=== PATIENT | male | born 1935 | race Caucasian/White ===

== ENCOUNTER 2016-07-24 06:20 | Day surgery (SDC) | payer OTHER ==
[2016-07-21 10:52] VITALS: BMI 27.4
[2016-07-24] MEDS ORDERED: PROPOFOL 20 ML ONE (07:35)
[2016-07-24] MEDS ORDERED: LIDOCAINE HCL/PF 2% SDV 5ML VIAL ONE (07:37)
[2016-07-24] MEDS ORDERED: ONDANSETRON 4 MG/2 ML VIAL ONE (07:39)
[2016-07-24] MEDS ORDERED: DEXAMETHASONE SOD PHOSPHATE 4 MG/1 ML VIAL ONE (07:39)
[2016-07-24] MEDS ORDERED: MIDAZOLAM HCL 2 MG/2 ML SINGLE DOSE VIAL ONE (07:52)
[2016-07-24] MEDS ORDERED: ceFAZolin SODIUM 1 GM VIAL ONE (08:05)
[2016-07-24] MEDS ORDERED: ESMOLOL HCL 10 ML ONE (08:24)
[2016-07-24] MEDS ORDERED: BUPIVACAINE HCL/PF 0.25% (2.5MG/ML) 10 ML VIAL IJ ONE ×2 (08:26)
[2016-07-24] MEDS ORDERED: ONDANSETRON 4 MG/2 ML VIAL IVPUSH PRN (08:55)
[2016-07-24] MEDS ORDERED: LACTATED RINGERS SOLUTION 1,000 ML IV SCH (09:00)
[2016-07-24] MEDS ORDERED: oxyCODONE HCL 5 MG TABLET PO PRN (09:16)
[2016-07-24 09:26] VITALS: TEMP 97.5
[2016-07-24 10:50] VITALS: BP 150/88; PULSE 80
--- NOTE | 2016-07-25 08:56 | OP ---
DATE OF OPERATION: 07/24/2016 done at [facility] SURGEON: Pipo Huber MD ASSISSTANT: ANN Camp PREOPERATIVE DIAGNOSIS: Right elbow olecranon bursitis/chronic. POSTOPERATIVE DIAGNOSIS: Right elbow olecranon bursitis/chronic. PROCEDURE: Excision of elbow olecranon bursa going down to bone. FINDINGS: Thickened, scarred-in olecranon bursa with scar tissue down to the olecranon bone. DESCRIPTION OF PROCEDURE: Informed consent was obtained. The patient was taken to the operating room where the right upper extremity was prepped and draped in a sterile fashion. Tourniquet was placed on the upper arm and inflated to 250 mmHg. The arm was placed across the chest in a supine position. Incision was made on the area of the mass, and the olecranon bursa was taken along its borders and taken down to the olecranon where it was removed in one piece. Small remnants remain, and these were removed, as well. Bovie cautery was used to create scarring along the olecranon portion. Careful attention was made to avoid damage to the neurovascular bundles. Wound was irrigated with irrigation. A portion of the was removed, which was extended due to the mass. The lowest subcutaneous layer was secured to the periosteum of the bone. The subcuticular layer was then closed, and the skin was closed with 3-0 nylon in a single interrupted suture. Sterile dressing was placed. The patient transferred to the recovery room without complication. PIPO HUBER M.D. [id number]
--- NOTE | 2016-07-28 13:18 | PATH ---
Surgical Pathology Report Patient Name: DORA JOHNSON [facility]. Rec. #: [id number] /Age/Gender: 1935 (Age: 80) / M Account: [id number] Location: [facility] Taken: 07/24/2016 Received: 07/24/2016 Reported: 07/28/2016 Physicians: Omar Jones M.D. Specimen(s) Received OLECRANON BURSA RIGHT ELBOW Clinical History Right olecranon bursitis Final Diagnosis SOFT TISSUE, RIGHT ELBOW, EXCISION: FIBROTIC SYNOVIUM CONSISTENT WITH BURSA, WITH ASSOCIATED HEMORRHAGE AND FIBRINOID NECROSIS. Electronically Signed Romero Monahan M.D. Gross Description Received in formalin, labeled "olecranon bursa right elbow," is a 4.4 x 3.5 x 1.8 cm aguilar, fibrous saclike structure with focal hemorrhage. Log Preparer sections are submitted in 2 cassettes. /07/27/2016 saudi07/27/2016
== END 2016-07-24 10:50 | disposition home or self-care (01) ==
LOC: FASU 06:20
PROVIDERS: ATTEND Orthopaedic Surgery
PROC: 0MB30ZZ Excision of Right Elbow Bursa and Ligament, Open Approach (ICD-10-PCS; principal; 2016-07-24 08:17)
DX: M70.20 Olecranon bursitis, unspecified elbow (principal)
CPT/HCPCS: 87070; 87075; 87205; 88304-TC; 94760

== ENCOUNTER 2022-06-11 23:45 | Inpatient (IN) | payer OTHER ==
[2022-06-12 00:08] VITALS: BMI 27.8
[2022-06-12] MEDS ORDERED: SODIUM CHLORIDE 0.9% 500 ML INFUS.BAG IV ONE ×2 (00:51→02:57)
[2022-06-12 01:13] LABS: BASO % 0.1 % (0-2.0); HEMATOCRIT 29.9 % (35.4-49); HEMOGLOBIN 9.1 GM/dL (11.7-16.9); LYMPH % 6.6 % (8-40); MCH 25.1 pg (25.7-33.7); MCHC 30.3 g/dl (32.0-35.9); MEAN CELL VOLUME 82.7 fl (80-96); MEAN PLT VOLUME 8.6 fl (7.5-11.1); MONO % 8.3 % (3.8-10.2); PLATELET COUNT 367 10^3/uL (134-434); RBC 3.62 M/mm3 (4.00-5.60); RDW 14.3 % (11.9-15.9); WHITE BLOOD COUNT 17.7 K/mm3 (4.0-10.0)
[2022-06-12 01:30] LABS: INR 1.22 (0.83-1.09); PROTHROMBIN TIME (PATIENT) 14.1 SEC (9.7-13.0)
[2022-06-12 01:32] LABS: ACTIVATED PTT 22.8 SECONDS (25.2-36.5)
[2022-06-12 01:35] LABS: ALBUMIN 2.9 g/dl (3.4-5.0); BLOOD UREA NITROGEN 41.4 mg/dL (7-18)
[2022-06-12 01:37] LABS: CREATININE 1.4 mg/dL (0.55-1.3)
[2022-06-12 01:38] LABS: TOT PROT 6.6 g/dl (6.4-8.2)
[2022-06-12 01:39] LABS: BILIRUBIN,TOTAL 0.3 mg/dL (0.2-1)
[2022-06-12 01:42] LABS: N-TERMINAL BNP 889.8 pg/ml (5-450)
[2022-06-12 01:46] LABS: LACTIC ACID 2.4 mmol/L (0.4-2.0)
[2022-06-12 02:09] LABS: VENOUS BASE EXCESS 7.4 mmol/L (-2-2); VENOUS O2 SATURATION 30.7 % (70-80); VENOUS PCO2 48.5 mmHg (38-52); VENOUS PH 7.442 (7.310-7.410)
[2022-06-12] MEDS ORDERED: PANTOPRAZOLE SODIUM 40 MG VIAL IVPUSH ONE (02:48)
[2022-06-12] MEDS ORDERED: PANTOPRAZOLE SODIUM 160 MG in SODIUM CHLORIDE 290 ML IVPB SCH ×2 (03:00→08:32)
[2022-06-12] MEDS ORDERED: PANTOPRAZOLE SODIUM 40 MG VIAL ONE (03:01)
[2022-06-12 04:11] LABS: EPI CELLS 6 /uL (0-25.1); HYALINE CASTS 2 /uL (0-3.1); PH,URINE 5.5 (5.0-8.0); URINE APPEARANCE CLEAR; URINE BACTERIA 4 /uL (0-1359); URINE BILIRUBIN NEGATIVE (NEGATIVE); URINE COLOR YELLOW; URINE GLUCOSE (UA) NEGATIVE (NEGATIVE); URINE KETONE NEGATIVE (NEGATIVE); URINE LEUK ESTERASE TRACE (NEGATIVE); URINE NITRITE NEGATIVE (NEGATIVE); URINE PROTEIN NEGATIVE (NEGATIVE); URINE RBC 26 /uL (0-23.9); URINE UROBILINOGEN 0.2 mg/dL (0.2-1.0); URINE WBC 34 /uL (0-25.8)
[2022-06-12] MEDS ORDERED: VANCOMYCIN/WATER 1,250 MG/250 ML BAG (RESTRICTED TO ID ONLY) IVPB SCH ×2 (05:45)
[2022-06-12] MEDS ORDERED: PIPERACILLIN/TAZOB 3.375 GM 3.375 GM in DEXTROSE 5%-WATER - 50 ML IVPB SCH ×2 (05:45→20:00)
[2022-06-12] MEDS ORDERED: PIPERACILLIN/TAZOB 3.375 GM 3.375 GM/50 ML BAG IVPB ONE ×2 (05:57→12:03)
[2022-06-12] MEDS: PIPERACILLIN/TAZOB 3.375 GM 3.375 GM in DEXTROSE 5%-WATER - 50 ML IVPB SCH ×3 (06:27→23:23)
[2022-06-12 06:33] LABS: BASO % 0.5 % (0-2.0); HEMATOCRIT 26.5 % (35.4-49); HEMOGLOBIN 8.1 GM/dL (11.7-16.9); MCH 24.9 pg (25.7-33.7); MCHC 30.7 g/dl (32.0-35.9); MEAN CELL VOLUME 81.2 fl (80-96); MEAN PLT VOLUME 8.6 fl (7.5-11.1); MONO % 9.1 % (3.8-10.2); NEUT % 79.4 % (42.8-82.8); PLATELET COUNT 355 10^3/uL (134-434); RBC 3.27 M/mm3 (4.00-5.60); WHITE BLOOD COUNT 16.3 K/mm3 (4.0-10.0)
[2022-06-12 06:50] LABS: CALCIUM 8.6 mg/dL (8.5-10.1)
[2022-06-12 06:51] LABS: ALBUMIN 2.7 g/dl (3.4-5.0); BLOOD UREA NITROGEN 39.5 mg/dL (7-18); MAGNESIUM 1.9 mg/dL (1.8-2.4)
[2022-06-12 06:54] LABS: PHOSPHOROUS 2.6 mg/dL (2.5-4.9)
[2022-06-12 06:55] LABS: BILIRUBIN,TOTAL 0.3 mg/dL (0.2-1)
[2022-06-12] MEDS ORDERED: NAPH,MB-DB/K PH,MBDB POWDER PACKET PO ONE (07:00)
[2022-06-12 07:02] LABS: CREATININE 1.2 mg/dL (0.55-1.3)
[2022-06-12] MEDS ORDERED: VANCOMYCIN/WATER FOR INJ (PEG) 1,000 MG/200 ML BAG IVPB ONE ×2 (08:00→08:46)
[2022-06-12] MEDS: INSULIN SLIDING SCALE (NOVOLOG) 1 VIAL SQ SCH ×4 (08:30→23:28)
[2022-06-12] MEDS ORDERED: TAMSULOSIN HCL 0.4 MG CAP PO SCH (08:30)
[2022-06-12] MEDS ORDERED: FINASTERIDE 5 MG TABLET (FP) PO SCH (10:00)
[2022-06-12] MEDS ORDERED: TAMSULOSIN HCL 0.4 MG CAP ONE (10:13)
[2022-06-12] MEDS ORDERED: ATORVASTATIN CA 10 MG TABLET (FP) PO SCH (22:00)
[2022-06-12] MEDS ORDERED: MELATONIN 5 MG TABLETS PO ONE (22:50)
[2022-06-12] MEDS: PANTOPRAZOLE 40 MG TABLET PO SCH (23:24)
[2022-06-12] MEDS: ATORVASTATIN CA 10 MG TABLET (FP) PO SCH (23:24)
[2022-06-13] MEDS: PIPERACILLIN/TAZOB 3.375 GM 3.375 GM in DEXTROSE 5%-WATER - 50 ML IVPB SCH ×3 (05:15→20:15)
[2022-06-13] MEDS: INSULIN SLIDING SCALE (NOVOLOG) 1 VIAL SQ SCH ×4 (06:21→21:33)
[2022-06-13] MEDS ORDERED: VANCOMYCIN/WATER FOR INJ (PEG) 750 MG/150 ML BAG IVPB SCH ×2 (08:00)
[2022-06-13 08:31] LABS: BASO % 0.4 % (0-2.0); EOS % 1.4 % (0-4.5); HEMATOCRIT 24.4 % (35.4-49); HEMOGLOBIN 7.7 GM/dL (11.7-16.9); LYMPH % 13.4 % (8-40); MCH 26.3 pg (25.7-33.7); MCHC 31.4 g/dl (32.0-35.9); MEAN CELL VOLUME 83.5 fl (80-96); MEAN PLT VOLUME 8.3 fl (7.5-11.1); MONO % 9.4 % (3.8-10.2); NEUT % 75.4 % (42.8-82.8); PLATELET COUNT 284 10^3/uL (134-434); RBC 2.92 M/mm3 (4.00-5.60); RDW 14.9 % (11.9-15.9); RETICULOCYTES 3.66 % (0.5-1.5)
[2022-06-13 09:03] LABS: ALBUMIN 2.6 g/dl (3.4-5.0); BLOOD UREA NITROGEN 31.3 mg/dL (7-18); CALCIUM 8.6 mg/dL (8.5-10.1)
[2022-06-13 09:08] LABS: BILIRUBIN,TOTAL 0.7 mg/dL (0.2-1); CREATININE 1.4 mg/dL (0.55-1.3); TOT PROT 5.6 g/dl (6.4-8.2)
[2022-06-13] MEDS: FINASTERIDE 5 MG TABLET (FP) PO SCH (09:54)
[2022-06-13] MEDS: PANTOPRAZOLE 40 MG TABLET PO SCH ×2 (09:54→21:27)
[2022-06-13] MEDS: DONEPEZIL HCL 10 MG TABLET (FP) PO SCH (09:54)
[2022-06-13] MEDS: TAMSULOSIN HCL 0.4 MG CAP PO SCH (09:54)
[2022-06-13] MEDS ORDERED: ATORVASTATIN CA 40 MG TABLET (FP) PO ONE (14:26)
[2022-06-13] MEDS: MELATONIN 5 MG TABLETS PO PRN (21:27)
[2022-06-13] MEDS: ATORVASTATIN CA 10 MG TABLET (FP) PO SCH (21:27)
[2022-06-14] MEDS: PIPERACILLIN/TAZOB 3.375 GM 3.375 GM in DEXTROSE 5%-WATER - 50 ML IVPB SCH ×3 (04:51→21:22)
[2022-06-14] MEDS: INSULIN SLIDING SCALE (NOVOLOG) 1 VIAL SQ SCH ×4 (06:34→22:00)
[2022-06-14 08:13] LABS: HEMOGLOBIN 8.1 GM/dL (11.7-16.9); MCH 26.6 pg (25.7-33.7); MCHC 31.3 g/dl (32.0-35.9); MEAN CELL VOLUME 84.9 fl (80-96); MEAN PLT VOLUME 8.2 fl (7.5-11.1); PLATELET COUNT 285 10^3/uL (134-434); RBC 3.06 M/mm3 (4.00-5.60); RDW 14.8 % (11.9-15.9); WHITE BLOOD COUNT 10.9 K/mm3 (4.0-10.0)
[2022-06-14 08:45] LABS: BLOOD UREA NITROGEN 21.6 mg/dL (7-18); MAGNESIUM 2.1 mg/dL (1.8-2.4)
[2022-06-14 08:48] LABS: CREATININE 1.2 mg/dL (0.55-1.3); PHOSPHOROUS 3.4 mg/dL (2.5-4.9)
[2022-06-14] MEDS: MEMANTINE HCL 10 MG TABLET (FP) PO SCH ×2 (09:48→21:23)
[2022-06-14] MEDS: TAMSULOSIN HCL 0.4 MG CAP PO SCH (09:48)
[2022-06-14] MEDS: FINASTERIDE 5 MG TABLET (FP) PO SCH (09:48)
[2022-06-14] MEDS: DONEPEZIL HCL 10 MG TABLET (FP) PO SCH (09:48)
[2022-06-14] MEDS: PANTOPRAZOLE 40 MG TABLET PO SCH ×2 (09:48→21:24)
[2022-06-14] MEDS ORDERED: MEMANTINE HCL 28 MG PO SCH (10:00)
[2022-06-14] MEDS: ATORVASTATIN CA 40 MG TABLET (FP) PO SCH (21:23)
[2022-06-14] MEDS: MELATONIN 5 MG TABLETS PO PRN (21:31)
[2022-06-15] MEDS: PIPERACILLIN/TAZOB 3.375 GM 3.375 GM in DEXTROSE 5%-WATER - 50 ML IVPB SCH ×3 (04:24→20:11)
[2022-06-15] MEDS: INSULIN SLIDING SCALE (NOVOLOG) 1 VIAL SQ SCH ×4 (06:12→21:27)
[2022-06-15 08:46] LABS: HEMATOCRIT 25.8 % (35.4-49); HEMOGLOBIN 8.2 GM/dL (11.7-16.9); MCH 27.1 pg (25.7-33.7); MCHC 31.9 g/dl (32.0-35.9); MEAN PLT VOLUME 8.5 fl (7.5-11.1); PLATELET COUNT 312 10^3/uL (134-434); RBC 3.04 M/mm3 (4.00-5.60); WHITE BLOOD COUNT 10.1 K/mm3 (4.0-10.0)
[2022-06-15 08:51] LABS: BLOOD UREA NITROGEN 18.4 mg/dL (7-18)
[2022-06-15 08:52] LABS: MAGNESIUM 2.1 mg/dL (1.8-2.4)
[2022-06-15 08:54] LABS: PHOSPHOROUS 3.8 mg/dL (2.5-4.9)
[2022-06-15 08:55] LABS: CALCIUM 8.9 mg/dL (8.5-10.1); CREATININE 1.3 mg/dL (0.55-1.3)
[2022-06-15] MEDS: TAMSULOSIN HCL 0.4 MG CAP PO SCH (09:30)
[2022-06-15] MEDS: DONEPEZIL HCL 10 MG TABLET (FP) PO SCH (09:59)
[2022-06-15] MEDS: PANTOPRAZOLE 40 MG TABLET PO SCH ×2 (09:59→21:13)
[2022-06-15] MEDS: FINASTERIDE 5 MG TABLET (FP) PO SCH (09:59)
[2022-06-15] MEDS: MEMANTINE HCL 10 MG TABLET (FP) PO SCH ×2 (10:01→21:13)
[2022-06-15] MEDS: ATORVASTATIN CA 40 MG TABLET (FP) PO SCH (21:12)
[2022-06-15] MEDS: MELATONIN 5 MG TABLETS PO PRN (21:13)
[2022-06-16] MEDS: PIPERACILLIN/TAZOB 3.375 GM 3.375 GM in DEXTROSE 5%-WATER - 50 ML IVPB SCH ×3 (05:10→21:28)
[2022-06-16] MEDS: INSULIN SLIDING SCALE (NOVOLOG) 1 VIAL SQ SCH ×4 (06:18→21:43)
[2022-06-16 07:45] LABS: HEMATOCRIT 25.8 % (35.4-49); HEMOGLOBIN 8.3 GM/dL (11.7-16.9); MCH 27.2 pg (25.7-33.7); MEAN CELL VOLUME 84.9 fl (80-96); MEAN PLT VOLUME 8.1 fl (7.5-11.1); PLATELET COUNT 311 10^3/uL (134-434); RBC 3.04 M/mm3 (4.00-5.60); RDW 15.1 % (11.9-15.9); WHITE BLOOD COUNT 10.2 K/mm3 (4.0-10.0)
[2022-06-16 08:04] LABS: CALCIUM 8.5 mg/dL (8.5-10.1)
[2022-06-16 08:05] LABS: ALBUMIN 2.7 g/dl (3.4-5.0); BLOOD UREA NITROGEN 16.4 mg/dL (7-18)
[2022-06-16 08:08] LABS: CREATININE 1.1 mg/dL (0.55-1.3); PHOSPHOROUS 2.9 mg/dL (2.5-4.9)
[2022-06-16 08:09] LABS: BILIRUBIN,TOTAL 0.7 mg/dL (0.2-1)
[2022-06-16 08:55] LABS: ANISOCYTOSIS 1+; MACROCYTOSIS 0
[2022-06-16] MEDS: MEMANTINE HCL 10 MG TABLET (FP) PO SCH ×2 (09:40→21:28)
[2022-06-16] MEDS: PANTOPRAZOLE 40 MG TABLET PO SCH ×2 (09:40→21:29)
[2022-06-16] MEDS: DONEPEZIL HCL 10 MG TABLET (FP) PO SCH (09:40)
[2022-06-16] MEDS: TAMSULOSIN HCL 0.4 MG CAP PO SCH (09:40)
[2022-06-16] MEDS: FINASTERIDE 5 MG TABLET (FP) PO SCH (09:40)
[2022-06-16] MEDS: ASPIRIN COATED 81 MG TABLET.EC PO SCH (17:11)
[2022-06-16] MEDS: ATORVASTATIN CA 40 MG TABLET (FP) PO SCH (21:28)
[2022-06-16] MEDS: MELATONIN 5 MG TABLETS PO PRN (21:28)
[2022-06-17] MEDS: PIPERACILLIN/TAZOB 3.375 GM 3.375 GM in DEXTROSE 5%-WATER - 50 ML IVPB SCH (05:14)
[2022-06-17] MEDS: INSULIN SLIDING SCALE (NOVOLOG) 1 VIAL SQ SCH ×4 (06:35→21:56)
[2022-06-17 08:14] LABS: HEMATOCRIT 25.1 % (35.4-49); HEMOGLOBIN 7.9 GM/dL (11.7-16.9); MCH 26.7 pg (25.7-33.7); MCHC 31.4 g/dl (32.0-35.9); MEAN PLT VOLUME 7.7 fl (7.5-11.1); PLATELET COUNT 303 10^3/uL (134-434); RBC 2.96 M/mm3 (4.00-5.60); RDW 15.8 % (11.9-15.9); WHITE BLOOD COUNT 8.7 K/mm3 (4.0-10.0)
[2022-06-17 08:46] LABS: ALBUMIN 2.5 g/dl (3.4-5.0); BLOOD UREA NITROGEN 16.4 mg/dL (7-18); MAGNESIUM 2.1 mg/dL (1.8-2.4)
[2022-06-17 08:48] LABS: CALCIUM 8.7 mg/dL (8.5-10.1)
[2022-06-17 08:49] LABS: CREATININE 1.1 mg/dL (0.55-1.3); PHOSPHOROUS 3.4 mg/dL (2.5-4.9)
[2022-06-17 08:50] LABS: BILIRUBIN,TOTAL 0.6 mg/dL (0.2-1); TOT PROT 5.7 g/dl (6.4-8.2)
[2022-06-17 09:15] LABS: ANISOCYTOSIS 0; MACROCYTOSIS 0
[2022-06-17] MEDS: amLODIPine BESYLATE 5 MG TABLET (FP) PO SCH (10:00)
[2022-06-17] MEDS: DONEPEZIL HCL 10 MG TABLET (FP) PO SCH (10:00)
[2022-06-17] MEDS: ASPIRIN COATED 81 MG TABLET.EC PO SCH (10:00)
[2022-06-17] MEDS: MEMANTINE HCL 10 MG TABLET (FP) PO SCH ×2 (10:00→21:48)
[2022-06-17] MEDS: FINASTERIDE 5 MG TABLET (FP) PO SCH (10:00)
[2022-06-17] MEDS: TAMSULOSIN HCL 0.4 MG CAP PO SCH (10:00)
[2022-06-17] MEDS: PANTOPRAZOLE 40 MG TABLET PO SCH ×2 (10:00→21:49)
[2022-06-17] MEDS: ATORVASTATIN CA 40 MG TABLET (FP) PO SCH (21:49)
[2022-06-17] MEDS: MELATONIN 5 MG TABLETS PO PRN (21:49)
[2022-06-18] MEDS: INSULIN SLIDING SCALE (NOVOLOG) 1 VIAL SQ SCH ×2 (06:24→11:14)
[2022-06-18] MEDS: TAMSULOSIN HCL 0.4 MG CAP PO SCH (08:38)
[2022-06-18 10:58] VITALS: BP 136/81; PULSE 82; RESP 18; TEMP 98.4
[2022-06-18] MEDS: DONEPEZIL HCL 10 MG TABLET (FP) PO SCH (10:59)
[2022-06-18] MEDS: MEMANTINE HCL 10 MG TABLET (FP) PO SCH (10:59)
[2022-06-18] MEDS: ASPIRIN COATED 81 MG TABLET.EC PO SCH (10:59)
[2022-06-18] MEDS: amLODIPine BESYLATE 5 MG TABLET (FP) PO SCH (10:59)
[2022-06-18] MEDS: FINASTERIDE 5 MG TABLET (FP) PO SCH (10:59)
[2022-06-18] MEDS: PANTOPRAZOLE 40 MG TABLET PO SCH (11:00)
== END 2022-06-18 14:00 | DRG 377 ==
LOC: JER 23:45 → JERBED 06-12 02:57 → J4W 06-12 18:06
PROVIDERS: ADMIT Internal Medicine; ATTEND Internal Medicine
PROC: 30233N1 Transfusion of Nonautologous Red Blood Cells into Peripheral Vein, Percutaneous Approach (ICD-10-PCS; 2022-06-12)
PROC: 0DJ08ZZ Inspection of Upper Intestinal Tract, Via Natural or Artificial Opening Endoscopic (ICD-10-PCS; principal; 2022-06-12 14:15)
DX: K29.41 Chronic atrophic gastritis with bleeding (principal); I61.9 Nontraumatic intracerebral hemorrhage, unspecified; G81.91 Hemiplegia, unspecified affecting right dominant side; N39.0 Urinary tract infection, site not specified; N17.9 Acute kidney failure, unspecified; D62 Acute posthemorrhagic anemia; K25.4 Chronic or unspecified gastric ulcer with hemorrhage; K29.71 Gastritis, unspecified, with bleeding; K21.9 Gastro-esophageal reflux disease without esophagitis; F03.90 Unspecified dementia, unspecified severity, without behavioral disturbance, psychotic disturbance, mood disturbance, and anxiety; D64.9 Anemia, unspecified; N40.0 Benign prostatic hyperplasia without lower urinary tract symptoms; E83.39 Other disorders of phosphorus metabolism; E11.9 Type 2 diabetes mellitus without complications; D50.9 Iron deficiency anemia, unspecified; B96.20 Unspecified Escherichia coli [E. coli] as the cause of diseases classified elsewhere; D72.829 Elevated white blood cell count, unspecified; I12.9 Hypertensive chronic kidney disease with stage 1 through stage 4 chronic kidney disease, or unspecified chronic kidney disease; N18.9 Chronic kidney disease, unspecified; R00.0 Tachycardia, unspecified; K44.9 Diaphragmatic hernia without obstruction or gangrene; R29.810 Facial weakness; K21.00 Gastro-esophageal reflux disease with esophagitis, without bleeding; R41.82 Altered mental status, unspecified
CPT/HCPCS: 0241U-QW; 36415; 36430; 70450-TC; 70551-TC; 71045-TC-FY; 74176-TC; 74230-TC-FY; 80048; 80053; 80061; 81003; 82272; 82728; 82803; 82962; 83036; 83540; 83550; 83605; 83735; 83880; 84100; 84484; 85025; 85027; 85045; 85610; 85730; 86140; 86850; 86900; 86901; 86922; 87040; 87086; 92611-GN; 93005; 93010; 93880-TC; 94760; 97116-GP; 97162-GP; 99285-25; C9803-CS; P9058; U0003; U0005